=== PATIENT | male | born 1970 | race African-American/Black ===

== ENCOUNTER 2017-11-25 10:00 | Emergency (ER) | payer MEDICAID ==
[~2017-11-25] VITALS: Ht 193 cm; Wt 88.0 kg
--- NOTE | 2017-11-25 10:43 | NUR ---
MSE COMPLETED, PT D/C'D HOME, ACI/RX X3 GIVEN. PT AMBULATED W./O DIFF/TOOK ALL BELONGINGS.
[2017-11-25 10:44] VITALS: BP 133/88
== END 2017-11-25 10:44 | disposition home or self-care (01) ==
LOC: ER 10:04
DX: L03.211 Cellulitis of face (principal)
CPT/HCPCS: 99283; A4663